=== PATIENT | female | born 1985 | race Caucasian/White ===

== ENCOUNTER 2018-10-17 06:12 | Emergency (ER) | payer OTHER ==
[~2018-10-17] VITALS: Ht 160 cm; Wt 81.2 kg
[~2018-10-17 06:12] MED LIST: CIPR250T30 PO; CIPR500T94 PO; HYDR-2765 PO
[2018-10-17 06:15] VITALS: BP 121/87
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
== END 2018-10-17 06:50 | disposition home or self-care (01) ==
LOC: ER 06:12
DX: Z77.21 Contact with and (suspected) exposure to potentially hazardous body fluids (principal); K21.9 Gastro-esophageal reflux disease without esophagitis
CPT/HCPCS: 86703; 86705; 86709; 86803; 87340; 99283

== ENCOUNTER → 2019-02-23 | Outpatient (CLI) | payer BC ==
[~2019-02-23] MED LIST changes: +ACET325T9 PO; +LEVO50TA5 PO; +MULT1TAB52 PO
--- NOTE | 2019-02-23 16:34 | RAD ---
RIGHT LEG VENOUS DOPPLER STUDY: Clinical indications: Right leg swelling and pain. Findings: Duplex sonography (including luevano scale evaluation and color flow and waveform spectral analysis) of the proximal aspect of the greater saphenous vein and proximal aspect of the profunda femoral vein and the entire length of the common femoral and superficial femoral and popliteal veins and the tibioperoneal trunk and the proximal aspect of the posterior tibial and peroneal veins of the right leg was performed. Normal compressibility, augmentation of color Doppler flow after calf compression, and respiratory variation of Doppler flow is seen. Thus, there are no sonographic findings of deep venous thrombosis within these veins. Impression: There are no sonographic findings of deep venous thrombosis within the veins discussed above of the right lower extremity. Electronically signed by: Quincy Rice MD (02/23/2019 4:31 PM) [id number]
== END | disposition home or self-care (01) ==
LOC: US 15:53
PROVIDERS: ATTEND Physician Assistant
DX: M79.604 Pain in right leg (principal); R60.0 Localized edema
CPT/HCPCS: 93971

== ENCOUNTER 2019-02-24 11:56 | Inpatient (IN) | payer BC ==
[~2019-02-24] VITALS: Ht 160 cm; Wt 72.6 kg
[~2019-02-24 11:56] MED LIST changes: -ACET325T9 PO; -IOHEXOL 300 MG/ML 75 ML VIAL. IV ONE; -LEVO50TA5 PO; -MULT1TAB52 PO
[2019-02-24] MEDS ORDERED: ONDANSETRON PF 4 MG/2 ML VIAL. IV PRN (12:30)
[2019-02-24] MEDS ORDERED: ACETAMINOPHEN 325 MG TABLET PO PRN (12:30)
[2019-02-24] MEDS ORDERED: HEPARIN 25,000UTS/500ML PREMIX 500 ML IV PRN (12:30)
[2019-02-24 12:31] VITALS: BP 114/75
[2019-02-24 12:39] LABS: ALBUMIN 3.7 g/dL (3.4-5.0); ALBUMIN/GLOBULIN RATIO 0.8 (1.0-1.7); CALCIUM 10.7 mg/dL (8.5-10.1); CREATININE 0.8 mg/dL (0.6-1.0); GFR 81.6; POTASSIUM 3.9 mmol/L (3.5-5.1); TOTAL BILIRUBIN 0.4 mg/dL (0.2-1.0); TOTAL PROTEIN 8.1 g/dL (6.4-8.2)
[2019-02-24 12:40] LABS: BASO % 0 % (0-3); EOS # 0.2 x10^3/uL (0.0-0.7); EOS % 2 % (0-3); HEMATOCRIT 39.3 % (36.0-47.0); HEMOGLOBIN 13.1 g/dL (12.0-15.5); LYMPH # 1.7 x10^3/uL (1.0-4.8); LYMPH % 18 % (24-48); MEAN CORPUSCULAR HEMOGLOBIN 28 pg (25-35); MEAN CORPUSCULAR HGB CONC 33 g/dL (31-37); MEAN CORPUSCULAR VOLUME 85 fL (79-100); MONO # 0.9 x10^3/uL (0.0-1.1); MONO % 9 % (0-9); NEUT # 6.8 x10^3uL (1.8-7.7); NEUT % 71 % (31-73); PLATELET COUNT 296 x10^3/uL (140-400); RED BLOOD COUNT 4.61 x10^6/uL (3.50-5.40); WHITE BLOOD COUNT 9.5 x10^3/uL (4.0-11.0)
[2019-02-24] MEDS ORDERED: HEPARIN for IV BOLUS 10,000 UNIT/10 ML VIAL. IV ONE (13:15)
[2019-02-24] MEDS ORDERED: HEPARIN for IV BOLUS 10,000 UNIT/10 ML VIAL. IV PRN ×2 (13:15)
[2019-02-24] MEDS: HEPARIN 25,000UTS/500ML PREMIX 500 ML IV PRN (13:33)
[2019-02-24] MEDS: HYDROcodone/APAP 7.5/325MG 1 TAB TABLET PO PRN ×2 (13:34→23:23)
[2019-02-24] MEDS ORDERED: IOHEXOL 350 MG/ML 100 ML VIAL. IV ONE (14:30)
--- NOTE | 2019-02-24 14:35 | RAD ---
Ultrasound of the right pelvis 02/24/2019 CLINICAL HISTORY: Right pelvic mass seen on CT scan from earlier today. TECHNIQUE: A real-time ultrasound examination of the right pelvis was performed. Multiple images were obtained. FINDINGS: An oval-shaped solid mass is seen in the right pelvis along the pelvic sidewall which measures 8.3 x 8.3 x 5.4 cm in longitudinal, transverse and AP dimensions. This corresponds to the abnormality seen on the patient's CT scan. It is consistent with a neoplastic process. IMPRESSION: 8.3 cm solid mass is seen along the right pelvic sidewall which corresponds to the abnormality seen on the patient's CT scan. It is consistent with a neoplastic process. Electronically signed by: Patrick Aponte MD (02/24/2019 2:32 PM) [facility]
[2019-02-24] MEDS ORDERED: ACET325T9 PO (15:16)
[2019-02-24] MEDS ORDERED: LEVO50TA5 PO (15:16)
[2019-02-24] MEDS ORDERED: MULT1TAB52 PO (15:16)
[2019-02-24 15:29] VITALS: BP 114/79
[2019-02-24] MEDS: IV NORMAL SALINE 1,000ML 1,000 ML IV SCH (17:26)
[2019-02-24] MEDS ORDERED: IOHEXOL 350 MG/ML 100 ML VIAL. ONE (17:30)
--- NOTE | 2019-02-24 19:52 | RAD ---
CTA scan of the Chest with Contrast (Pulmonary Embolism protocol) 02/24/2019 Clinical History: Positive d-dimer. History of endometrial carcinoma. Technique: After the intravenous administration of 90 cc of Omnipaque 350, contiguous, 0.625 mm axial sections were obtained through the chest. 3 mm axial and 3D MIP coronal and sagittal reconstructed images were obtained. One or more of the following individualized dose reduction techniques were utilized for this study: 1. Automated exposure control. 2. Adjustment of the mA and/or kV according to patient size. 3. Use of iterative reconstruction technique. Findings: No filling defect is seen within the major branches of either pulmonary artery. There is no CT evidence of pulmonary embolism. The heart and thoracic aorta are within normal limits. Minimal dependent subsegmental atelectasis is seen involving both lungs. No area of consolidation, pleural effusion or pneumothorax is seen. A 1 cm noncalcified nodule is seen involving the right lower lobe. A 6 mm noncalcified nodule is seen involving the inferior left upper lobe. These could represent pulmonary metastasis. Impression: There is no CT evidence of pulmonary embolism. Electronically signed by: Patrick Aponte MD (02/24/2019 7:49 PM) [facility]
[2019-02-24 19:56] VITALS: BP 107/71
[2019-02-24 23:13] VITALS: BP 112/76
[2019-02-25] MEDS: IV NORMAL SALINE 1,000ML 1,000 ML IV SCH ×2 (03:53→15:17)
[2019-02-25] MEDS: LEVOTHYROXINE 50 MCG TABLET PO SCH (05:32)
[2019-02-25] MEDS: HYDROcodone/APAP 7.5/325MG 1 TAB TABLET PO PRN ×5 (05:33→23:39)
[2019-02-25 05:55] LABS: BACTERIA,URINE FEW /HPF (0-FEW); BILIRUBIN,URINE NEG (NEG); CLARITY,URINE CLEAR; COLOR,URINE YELLOW; GLUCOSE,URINE NEG (NEG); NITRITE,URINE NEG (NEG); RBC,URINE 0 /HPF (0-2); SQUAMOUS EPITHELIAL CELL,UR FEW /LPF; UROBILINOGEN,URINE 0.2 mg/dL (0.2 mg/dL); WBC,URINE OCC /HPF (0-4)
[2019-02-25 06:10] VITALS: BP 101/68
[2019-02-25 07:38] LABS: BASO # 0.1 x10^3/uL (0.0-0.2); BASO % 1 % (0-3); EOS # 0.2 x10^3/uL (0.0-0.7); EOS % 2 % (0-3); HEMATOCRIT 36.7 % (36.0-47.0); HEMOGLOBIN 12.1 g/dL (12.0-15.5); LYMPH # 1.6 x10^3/uL (1.0-4.8); LYMPH % 22 % (24-48); MEAN CORPUSCULAR HEMOGLOBIN 28 pg (25-35); MEAN CORPUSCULAR HGB CONC 33 g/dL (31-37); MEAN CORPUSCULAR VOLUME 85 fL (79-100); MONO # 0.8 x10^3/uL (0.0-1.1); MONO % 11 % (0-9); NEUT # 4.9 x10^3uL (1.8-7.7); NEUT % 65 % (31-73); PLATELET COUNT 263 x10^3/uL (140-400); RED BLOOD COUNT 4.29 x10^6/uL (3.50-5.40); WHITE BLOOD COUNT 7.5 x10^3/uL (4.0-11.0)
[2019-02-25 07:55] LABS: ALBUMIN 3.3 g/dL (3.4-5.0); ALBUMIN/GLOBULIN RATIO 0.8 (1.0-1.7); CALCIUM 10.5 mg/dL (8.5-10.1); CREATININE 0.7 mg/dL (0.6-1.0); GFR 95.2; POTASSIUM 4.1 mmol/L (3.5-5.1); TOTAL BILIRUBIN 0.3 mg/dL (0.2-1.0); TOTAL PROTEIN 7.2 g/dL (6.4-8.2)
[2019-02-25] MEDS: MULTIVITAMIN with MINERAL TABLET. PO SCH (09:01)
[2019-02-25 11:22] VITALS: BP 108/71
[2019-02-25] MEDS ORDERED: ALPRAZolam 0.25 MG TABLET PO PRN (12:00)
[2019-02-25] MEDS: HEPARIN 25,000UTS/500ML PREMIX 500 ML IV PRN (15:53)
[2019-02-25] MEDS: DOCUSATE SODIUM 100 MG CAPSULE PO SCH (15:53)
[2019-02-25 17:26] VITALS: BP 105/68
[2019-02-25] MEDS: traZODone 50 MG TABLET. PO SCH ×2 (20:45→21:00)
--- NOTE | 2019-02-26 02:22 | PN ---
DATE: SUBJECTIVE: A 33-year-old female came in with markedly swollen right leg. She has a history apparently of endometrial cancer approximately 5 years ago. Had a hysterectomy at that time, oophorectomy and salpingotomy. She has also had abdominal bypass surgery in May for weight reduction. In any case, the patient has this clot in her right upper thigh. It has been Tuesday, we will get her transferred. She prefers to go down to [facility] where the doctor who did her initial oncology service was there and we will try to get hold of him and get her accepted in transfer. OBJECTIVE: VITAL SIGNS: Blood pressure 108/70, respiratory rate 16, pulse 70, afebrile. LUNGS: Clear. CARDIOVASCULAR: Stable. EXTREMITIES: Her right leg is still swollen, but has excellent pulses. Distal pulses are noted, dorsal pedis and posterior tibialis. The foot is warm. Good capillary refill. The leg itself is swollen. CT report shows this 8-9 cm mass encapsulating around the blood vessels of the iliac tributary. Impression; deep venous thrombosis. Ovarian mass, pain, she is having significant pain and we are monitoring that as well. She is on a heparin drip and continued to be monitored carefully on this until we can get her transferred down to her surgeon down at the [facility]. IMPRESSION: Probable uterine mass, reoccurrence of cancer, and deep venous thrombosis of the right leg. ABBIE RAE MD DR: MOHIT/david JOB#: [id number] / [id number]
[2019-02-26] MEDS: IV NORMAL SALINE 1,000ML 1,000 ML IV SCH (04:41)
[2019-02-26] MEDS: LEVOTHYROXINE 50 MCG TABLET PO SCH (04:42)
[2019-02-26] MEDS: HYDROcodone/APAP 7.5/325MG 1 TAB TABLET PO PRN ×2 (04:42→09:15)
[2019-02-26 05:02] VITALS: BP 106/69
[2019-02-26] MEDS: MULTIVITAMIN with MINERAL TABLET. PO SCH (08:14)
[2019-02-26] MEDS: DOCUSATE SODIUM 100 MG CAPSULE PO SCH (08:14)
[2019-02-26 10:40] VITALS: BP 108/72
[2019-02-26] MEDS: HYDROcodone/APAP 10/325 1 TAB TABLET PO PRN ×2 (12:44→15:59)
[2019-02-26] MEDS: HEPARIN 25,000UTS/500ML PREMIX 500 ML IV PRN (13:35)
[2019-02-26 14:57] VITALS: BP 99/63
--- NOTE | 2019-02-27 19:17 | DS ---
DATE OF DISCHARGE: 02/26/2019 HOSPITAL COURSE: The patient was transferred to [facility]. The patient was having swelling in her right leg. The patient had a clot formed as well as a 9 cm mass in her right pelvic area, probably recurrence of her history of uterine cancer strangulating the iliac arteries and veins. As a result of this, the patient required obviously further aggressive therapy. She was transferred via EMS down to the [facility] for further evaluation and treatment. IMPRESSION: Pelvic neoplasm encasing the iliac arteries, clot to the right leg secondary to malignancy, possible metastatic cancer to the lungs from the previous history of uterine cancer. DISPOSITION: The patient will be monitored carefully and make further evaluation. She is transferred via EMS without any complications. ABBIE RAE MD DR: MOHIT/nts JOB#: [id number] / [id number]
== END 2019-02-26 16:00 | disposition short-term general hospital (02) | DRG 301 ==
LOC: 1 SOUTH 11:56
PROVIDERS: ADMIT Family Medicine; ATTEND Family Medicine
DX: I82.401 Acute embolism and thrombosis of unspecified deep veins of right lower extremity (principal); Z85.42 Personal history of malignant neoplasm of other parts of uterus; Z90.710 Acquired absence of both cervix and uterus
CPT/HCPCS: 36415; 71275; 74177; 76856; 80053; 81001; 82565; 85025; 85730; 93971; J1644; J3010; Q9967; J7030

== ENCOUNTER → 2019-02-24 | Outpatient (CLI) | payer BC ==
[~2019-02-24] MED LIST changes: +IOHEXOL 300 MG/ML 75 ML VIAL. IV ONE
[2019-02-24 09:18] LABS: CREATININE 0.8 mg/dL (0.6-1.0); GFR 81.6
--- NOTE | 2019-02-24 10:23 | RAD ---
CT scan of the abdomen and pelvis with contrast 02/24/2019 CLINICAL HISTORY: Abdominal pain for 2 days. Right leg swelling. TECHNIQUE: After the intravenous administration 75 cc of Omnipaque 300 only, contiguous, 5 mm axial sections were obtained through the abdomen and pelvis. One or more of the following individualized dose reduction techniques were utilized for this study: 1. Automated exposure control. 2. Adjustment of the mA and/or kV according to patient size. 3. Use of iterative reconstruction technique. FINDINGS: Comparison study is dated 05/01/2014. Images through the lung bases demonstrate minimal dependent subsegmental atelectasis bilaterally. A 7 mm noncalcified nodule is seen involving the right lower lobe. This is new since the previous examination. The liver parenchyma has a decreased attenuation consistent with mild fatty infiltration. A 4 mm rounded low-attenuation lesion is seen involving the right lobe liver consistent with a hepatic cyst. This is unchanged. A 1.3 cm poorly defined low-attenuation area is seen involving the inferior aspect of the right lower liver which was not seen on the previous examination. Its CT appearance is nonspecific. The spleen, pancreas, adrenal glands and right kidney are within normal limits. A 1 cm rounded low-attenuation lesion is seen involving the midpole of the left kidney. A 5 mm low-attenuation lesion is seen involving the lower pole of left kidney. These likely represent cysts. The gallbladder is slightly contracted. No free fluid or free air is seen within the abdomen. The patient appears to be post gastric bypass surgery. There is no evidence of bowel obstruction. No free fluid or free air is seen within the abdomen. The abdominal aorta tapers normally. An enlarged retroperitoneal lymph node is seen within the mid/lower abdomen posterior and slightly to the right of the inferior vena cava. This measures 4.4 cm in greatest diameter. A heterogeneous mass is seen within the right pelvis which displaces the right psoas muscle laterally to the right. This encases the right external iliac artery narrowing it to some degree. The right internal iliac artery and its branches are displaced medially. This mass encases and/or impinges upon the right common and right external iliac veins. This mass measures 9.4 x 6.8 x 5.9 cm in craniocaudal, transverse and AP dimensions. It is concerning for a neoplastic process. The right common femoral vein and visualized portions of the right superficial femoral vein are enlarged and thrombosed. Enlarged right pelvic lymph nodes are seen which measure 1 to 2 cm in size. Images through the pelvis demonstrate the urinary bladder with urine. Calcifications are seen within the pelvis consistent with phleboliths. The patient appears to be post hysterectomy. No adnexal mass is seen. A very small amount free fluid is seen within the pelvis. Minimal S-shaped curvature of the thoracolumbar spine is seen. Degenerative changes are seen involving the lower thoracic and throughout the lumbar spine and both hips. IMPRESSION: 1. 9.4 cm heterogeneous mass is seen within the right pelvis which encases the right common and external iliac artery and encases and/or extrinsically compresses the right common and external iliac veins. This is consistent with a neoplastic process. Enlarged right pelvic lymph nodes are seen which measure 1 to 2 cm in size. A 4.4 cm enlarged retroperitoneal lymph node is seen within the abdomen. A 7 mm noncalcified nodule is seen involving the right lower lobe concerning for a metastasis. 2. DVT is seen involving the visualized right superficial femoral and right common femoral veins. These findings were discussed with Estela Soriano's nurse. Electronically signed by: Patrick Aponte MD (02/24/2019 10:20 AM) [facility]
== END | disposition home or self-care (01) ==
LOC: CT 08:33
PROVIDERS: ATTEND Physician Assistant
DX: J98.11 Atelectasis (principal); I77.1 Stricture of artery; I82.411 Acute embolism and thrombosis of right femoral vein; K82.0 Obstruction of gallbladder; K76.9 Liver disease, unspecified; N28.9 Disorder of kidney and ureter, unspecified; R91.1 Solitary pulmonary nodule; R59.0 Localized enlarged lymph nodes; R19.00 Intra-abdominal and pelvic swelling, mass and lump, unspecified site; M47.815 Spondylosis without myelopathy or radiculopathy, thoracolumbar region; M16.0 Bilateral primary osteoarthritis of hip; Z90.710 Acquired absence of both cervix and uterus; Z98.84 Bariatric surgery status
CPT/HCPCS: 36415; 74177; 82565; Q9967